=== PATIENT | female | born 1955 | race Hispanic/Latino ===

== ENCOUNTER 2019-11-28 13:56 | Emergency (ER) | payer OTHER ==
[~2019-11-28 13:56] MED LIST: ASPI-556 PO; CHOL100040 PO; MEDR2.5T6 PO; NAPR-1023 PO
[2019-11-28] MEDS ORDERED: NAPROXEN 500 MG TABLET ONE (15:12)
== END 2019-11-28 15:37 | disposition home or self-care (01) ==
LOC: EDH 13:56
DX: S52.611A Displaced fracture of right ulna styloid process, initial encounter for closed fracture (principal); S52.501A Unspecified fracture of the lower end of right radius, initial encounter for closed fracture; W01.0XXA Fall on same level from slipping, tripping and stumbling without subsequent striking against object, initial encounter; Y93.89 Activity, other specified; Y92.098 Other place in other non-institutional residence as the place of occurrence of the external cause; Y99.8 Other external cause status
CPT/HCPCS: 29125; 73110